=== PATIENT | female | born 1985 | race Two or more races ===

== ENCOUNTER 2024-02-19 21:55 | Emergency (ER) | payer OTHER ==
[~2024-02-19] VITALS: Ht 154.9 cm; Wt 90.7 kg
[2024-02-19] MEDS ORDERED: ONDANSETRON HCL 2 MG/ML VIAL IM ONE (22:30)
[2024-02-19] MEDS ORDERED: TRAMADOL HCL 50 MG TABLET PO ONE (22:30)
== END 2024-02-20 00:05 | disposition home or self-care (01) ==
LOC: ER 21:55
DX: S09.8XXA Other specified injuries of head, initial encounter (principal); W19.XXXA Unspecified fall, initial encounter; Y93.89 Activity, other specified; Y92.59 Other trade areas as the place of occurrence of the external cause; Y99.8 Other external cause status; Z88.2 Allergy status to sulfonamides